=== PATIENT | male | born 1975 | race Caucasian/White ===

== ENCOUNTER 2016-12-30 09:19 | Emergency (ER) | payer OTHER ==
[~2016-12-30] VITALS: Ht 172.7 cm; Wt 78.0 kg
[2016-12-30 09:22] VITALS: Ht 172.7 cm; Wt 78.0 kg
--- NOTE | 2016-12-30 09:23 | ERD ---
ER Documentation Chief Complaint Date/Time DATE: 12/30/16 TIME: 09:21 Chief Complaint HPI This is a 41-year-old male who presents to the emergency room and custody with police for medical clearance. This patient does state that he uses heroin and has not used heroin in 2 days. He was brought to the emergency room for clearance from his heroin withdrawal symptoms. The patient is denying any recent ingestion of any other drugs or alcohol. Denies any chest pain or palpitations or shortness of breath ROS All systems reviewed and are negative except as per history of present illness. Physical Exam Physical Exam INITIAL VITAL SIGNS: Reviewed by me GENERAL: The patient is well developed and appropriate for usual state of health in no apparent distress HEENT: Pupils equal, round, and reactive to light. EOMI. There is no scleral icterus. NECK: C-spine is soft and supple, there is no meningismus. There is no cervical lymphadenopathy. LUNGS: Clear to auscultation bilaterally. There are no rales, wheezes or rhonchi. HEART: Regular rate and rhythm, no murmurs, clicks, rubs or gallops. ABDOMEN: Soft, non-tender, non-distended. There are bowel sounds in all four quadrants. No rebound or guarding. EXTREMITIES: There is no peripheral cyanosis or edema. No focal swelling or erythema. NEUROLOGICAL: The patient moves all four extremities with 5/5 strength. Cranial nerves II - XII are intact. Normal gait. Alert and oriented SKIN: Piloerection noted, there is no apparent rash or petechiae. HEME/LYMPHATIC: There is no evidence of excessive bruising or lymphedema. PSYCHIATRIC: The patient does not appear anxious or depressed. Procedures/MDM This 41-year-old male presents to the ER for medical clearance for opiate withdrawal. When I evaluated this patient he did have piloerection, no signs of respiratory distress, and he was hemodynamically stable with a blood pressure of 140/93. The patient is not hypoxic and in no respiratory distress. He was given 0.2 mg of p.o. clonidine and will be discharged in the police custody at this time Departure Diagnosis: Primary Impression: Opiate withdrawal Additional Impression: Medical clearance for incarceration Condition: Stable ART TOLLIVER DO Dec 30, 2016 09:23
[2016-12-30 09:56] VITALS: BP 132/96; PULSE 57; RESP 20; TEMP 98.6
== END 2016-12-30 10:07 ==
LOC: E/R 09:19
DX: F11.23 Opioid dependence with withdrawal (principal); Z02.89 Encounter for other administrative examinations
CPT/HCPCS: 99283